=== PATIENT | female | born 1945 | race Caucasian/White ===

== ENCOUNTER 2017-10-22 10:31 | Emergency (ER) | payer MEDICARE ==
[2017-10-22] MEDS ORDERED: HYDROcodone/Acetaminophen 10/325 mg Tablet ONE (11:08)
[2017-10-22] MEDS ORDERED: Adacel (T-DAP) 0.5 ML VIAL ONE (11:08)
--- NOTE | 2017-10-22 11:25 | RAD ---
LEFT HAND RADIOGRAPHS THREE VIEWS: Date: 10-22-17 Provided Clinical History: Hand pain status post injury. FINDINGS: Prominent first CMC degenerative changes are seen. There is no evidence for fracture or other acute o sseous abnormality. Alignment appears anatomic. Joint spaces appear preserved. If there is persistent clinical concern, conservative management and follow up imaging are advised. IMPRESSION: As above. POS: [facility]
--- NOTE | 2017-10-22 11:26 | RAD ---
RIGHT HAND RADIOGRAPHS THREE VIEWS: Date: 10-22-17 Provided Clinical History: Right hand pain status post fall. FINDINGS: Prominent degenerative changes are seen at the first MCM joint. No evidence for fracture or other acu te osseous abnormality. If there is persistent clinical concern, conservative management and follow u p imaging are advised. IMPRESSION: As above. POS: [facility]
[2017-10-22] MEDS ORDERED: Ondansetron ODT 4 MG TAB ONE (12:26)
[2017-10-22] MEDS ORDERED: Ondansetron ODT 8 MG TAB ONE (12:27)
--- NOTE | 2017-10-22 12:49 | CT ---
CT BRAIN WITHOUT CONTRAST: Date: 10/22/17 HISTORY: Trauma. Injury. COMPARISON: None. FINDINGS: Large right forehead superficial soft tissue contusion and hematoma. No territorial infarct or hemorr brooks. No midline shift or mass effect. Ventricular size and extra-axial CSF spaces are normal. Calvar ium is intact. Paranasal sinuses and mastoids are clear. IMPRESSION: Right forehead superficial soft tissue contusion without acute intracranial abnormality. POS: [facility]
== END 2017-10-22 12:18 | disposition home or self-care (01) ==
LOC: ERS 10:31
DX: S09.90XA Unspecified injury of head, initial encounter (principal); S00.83XA Contusion of other part of head, initial encounter; S60.512A Abrasion of left hand, initial encounter; S60.511A Abrasion of right hand, initial encounter; S80.212A Abrasion, left knee, initial encounter; S80.211A Abrasion, right knee, initial encounter; S70.211A Abrasion, right hip, initial encounter; E78.5 Hyperlipidemia, unspecified; Z79.82 Long term (current) use of aspirin; Z79.899 Other long term (current) drug therapy; Z23 Encounter for immunization; W18.30XA Fall on same level, unspecified, initial encounter
CPT/HCPCS: 70450; 90471; 90715; Q0162

== ENCOUNTER 2017-12-22 11:04 | Outpatient (CLI) | payer MEDICARE ==
--- NOTE | 2017-12-22 11:36 | RAD ---
PA AND LATERAL CHEST: History: Cough. FINDINGS: The heart size is normal. The lungs are expanded without focal areas of consolidation, pneumothorax o r pleural effusions. IMPRESSION: No radiographic evidence of acute cardiopulmonary process. POS: [facility]
== END 2017-12-22 11:05 | disposition home or self-care (01) ==
LOC: BICRAD 11:04
PROVIDERS: ATTEND Internal Medicine
DX: R05 Cough (principal)
CPT/HCPCS: 71046

== ENCOUNTER 2018-02-04 12:38 | Outpatient (CLI) | payer MEDICARE ==
--- NOTE | 2018-02-04 15:05 | BD ---
DEXA DENSITOMETRY: INDICATIONS: A 72-year-old female for postmenopausal osteoporosis screening. FINDINGS: LUMBAR SPINE BMD (g/cm2) T-SCORE L1 1.102 1.0 L2 1.122 0.9 L3 1.093 0.1 L4 1.101 0.4 TOTAL 1.104 0.5 FEMORAL NECK DENSITY 0.806 -0.4 TOTAL 1.055 0.9 IMPRESSION: The bone mineral density of the lumbar spine and the femoral neck are both within the normal range. POS: [facility]
== END 2018-02-04 12:39 | disposition home or self-care (01) ==
LOC: BICMAMMO 12:38
PROVIDERS: ATTEND Internal Medicine
DX: Z12.31 Encounter for screening mammogram for malignant neoplasm of breast (principal); Z13.820 Encounter for screening for osteoporosis; Z80.3 Family history of malignant neoplasm of breast
CPT/HCPCS: 77063; 77067; 77080

== ENCOUNTER 2019-07-19 13:19 | Inpatient (IN) | payer MEDICARE ==
[2019-07-19] MEDS ORDERED: Diltiazem 125 MG/25 ML ONE (13:40)
[2019-07-19] MEDS ORDERED: Digoxin 0.5 MG/2 ML AMP ONE (13:40)
[2019-07-19] MEDS ORDERED: Magnesium 2 GM/50 ML BAG (IN WATER) ONE (13:40)
[2019-07-19 13:59] LABS: #Basophils 0.1 thou/uL (0.0-0.2); #Lymphocytes 1.4 thou/uL (1.20-3.40); #Monocytes 0.5 thou/uL (0.11-0.59); #Neutrophils 2.8 thou/uL (1.40-6.50); %Basophils 2.2 % (0.0-1.0); %Eosinophils 0.5 % (0.0-10.0); %Lymphocytes 28.9 % (21.0-51.0); %Neutrophils 57.4 % (42.0-75.0); Hemoglobin 12.6 g/dL (12.0-16.0); Mean Corpuscular HGB CONC 33.3 g/dL (32.0-36.0); Mean Corpuscular Hemoglobin 31.6 pg (27.0-31.0); Mean Platelet Volume 7.8 fL (7.4-10.4); Platelet Count 219 thou/uL (130-400); RBC Distribution Width 11.7 % (11.5-14.5); Red Blood Cell (RBC) Count 3.99 mill/uL (4.20-5.40)
[2019-07-19] MEDS ORDERED: Diltiazem HCl 125 MG, Admixture Fee 1 EACH in Sodium Chloride 0.9% 100 ML IVPB SCH (14:00)
[2019-07-19 14:02] LABS: PTT 25.2 SEC (22.9-36.1); Prothrombin Time 12.7 SEC (12.0-14.7)
[2019-07-19 14:04] LABS: D-Dimer Test 0.28 *mcg/mL (0.27-0.43)
--- NOTE | 2019-07-19 14:04 | RAD ---
RADIOGRAPH CHEST 1 VIEW: DATE: 07/19/2019 HISTORY: 73-year-old female with chest pain, tachycardia, atrial fibrillation FINDINGS: There are no airspace densities, pulmonary edema, pneumothorax, or cardiomegaly. The lateral costophr enic angles are sharp. IMPRESSION: No acute cardiopulmonary findings.
[2019-07-19 14:33] LABS: ALT (SGPT) 19 U/L (8-55); AST (SGOT) 23 U/L (5-34); Alkaline Phosphatase 66 U/L (40-110); Anion Gap 18 mmol/L (10-20); BUN (Urea Nitrogen) 16 mg/dL (9.8-20.1); Bilirubin, Total 0.5 mg/dL (0.2-1.2); CK (CPK) 119 U/L (29-168); Calc. Creatinine Clearance 0 mL/min (70-130); Carbon Dioxide 18 mmol/L (23-31); Chloride 106 mmol/L (98-107); Estimated GFR-MDRD 73; Globulin 2.4 g/dL (2.4-3.5); Glucose 109 mg/dL (83-110); Lipase 36 U/L (8-78); Potassium 3.6 mmol/L (3.5-5.1); Protein, Total 6.4 g/dL (6.0-8.3); Sodium 138 mmol/L (136-145)
[2019-07-19] MEDS ORDERED: Cyanocobalamin 1000 MCG/ML VIAL IM SCH (14:45)
[2019-07-19] MEDS ORDERED: Enoxaparin Sodium 80 MG/0.8 ML SYRINGE ONE (14:59)
[2019-07-19] MEDS ORDERED: Senokot S 8.6-50 MG TAB PO PRN (15:42)
[2019-07-19] MEDS ORDERED: Guaifenesin DM 100-10/5 ML UDCUP PO PRN (15:42)
[2019-07-19] MEDS ORDERED: Acetaminophen 325 MG TAB PO PRN (15:42)
[2019-07-19] MEDS ORDERED: Calcium Carbonate 500 MG ChewTAB PO PRN (15:42)
[2019-07-19] MEDS ORDERED: Ondansetron PF 4 MG/2 ML Vial IVP PRN (15:42)
[2019-07-19] MEDS ORDERED: Bisacodyl 10 MG SUPP PR PRN (15:42)
[2019-07-19] MEDS ORDERED: Diltiazem 125 MG in Sodium Chloride 0.9% 100 ML IVPB SCH (15:45)
--- NOTE | 2019-07-19 16:24 | HP ---
REASON FOR ADMISSION: New onset atrial fibrillation with RVR. HISTORY OF PRESENTING ILLNESS: The patient gives history of playing golf with her friends this morning. She was near her 9th hole when she started to develop palpitations and shortness of breath. This kind of subsided a little bit and she managed to go to her friend's house in her car. While sitting at the patio, the patient developed dizziness again and palpitations associated with it. This again subsided a little and Ms. Jolly ate her lunch. Soon after, the patient got worse with her palpitation and felt like almost passing out with diaphoresis. EMS was summoned and the patient was brought here. She was given multiple doses of Cardizem IV push and digoxin one dose 0.5 mg, along with the patient being on 10 mg an hour of Cardizem drip at present. Her rate is still 110 per minute. No current chest pain or shortness of breath. No history of bleeding per rectum. No prior history of atrial fibrillation. No fever or thyroid problems. No cough or expectoration. No history of exposure to coronavirus. PAST MEDICAL AND SURGICAL HISTORY: Dyslipidemia, GERD, mild coronary artery disease based on prior cardiac cath done by Dr. Mejia 4 years back, hysterectomy, appendectomy, hernia repair, bladder suspension surgery. CURRENT MEDICATIONS: She takes; 1. Atorvastatin 20 mg p.o. at bedtime. 2. Premarin 0.3 mg p.o. at bedtime. 3. Aspirin 81 mg p.o. daily. 4. Protonix 40 mg p.o. daily. 5. Takes a fiber pill daily. 6. Turmeric tablet daily. ALLERGIES: TIOCONAZOLE AND ADHESIVE. PERSONAL HISTORY: Drinks 2 shots of scotch every day. Does not abuse drugs or smoke. She quit smoking more than 40 years back. She lives with her , is very active in life. FAMILY HISTORY: Mother at the age of 69, she had history of emphysema and was a smoker, she also had coronary artery disease. Father at the age of 88, he had history of stroke in his 70s. CODE STATUS: Full. Power of claims attorney is her . REVIEW OF SYSTEMS: CONSTITUTIONAL: Negative for weight loss or gain, ability to conduct usual activities. SKIN: Negative for rash, itching. EYES: Negative for double vision, pain. ENT/MOUTH: Negative for nose bleeding, neck stiffness, pain, tenderness. CARDIOVASCULAR: Negative for palpitations, dyspnea on exertion, orthopnea. RESPIRATORY: Negative for shortness of breath, wheezing, cough, hemoptysis, fever or night sweats. GASTROINTESTINAL: Negative for poor appetite, abdominal pain, heartburn, nausea, vomiting, constipation, or diarrhea. GENITOURINARY: Negative for urgency, frequency, dysuria, nocturia. MUSCULOSKELETAL: Negative for pain, swelling. NEUROLOGIC/PSYCHIATRIC: Negative for anxiety, depression. ALLERGY/IMMUNOLOGIC: Negative for skin rash, bleeding tendency. PHYSICAL EXAMINATION: GENERAL: The patient is a 73-year-old female, who is currently not in any acute distress. VITAL SIGNS: Blood pressure 136/66, pulse 120 per minute, respiratory rate 18 per minute, temperature 98.1 degrees Fahrenheit, saturating 98% on room air. NECK: Supple. No elevated JVD. HEENT: Eyes; extraocular muscles are intact. Pupils reacting to light. Oral cavity, mucous membranes are moist. No exudates or congestion. CARDIOVASCULAR: S1 and S2 heard, irregular rhythm. RESPIRATORY: Air entry 1+ bilateral. No rales or rhonchi. ABDOMEN: Soft. Bowel sounds heard. No tenderness, rigidity, or guarding. EXTREMITIES: No peripheral edema or calf tenderness. VASCULAR: Peripheral pulses 1+ bilateral. No ischemic ulcerations or gangrene. CENTRAL NERVOUS SYSTEM: No gross focal deficits noted. The patient is alert, awake, oriented well. PSYCHIATRIC: The patient's mood is euthymic. No hallucinations or delusions. IMAGING STUDIES: EKG done shows atrial fibrillation with ventricular rate of around 140s. Chest x-ray done shows no acute cardiopulmonary abnormalities. LABORATORY DATA: Troponin x1 negative. BNP is 81. BUN 16, creatinine 0.7, serum bicarb 18. Electrolytes are stable. LFTs are within normal limits. Albumin is 4, lipase 36. PT, INR, PTT within normal limits. White count of 5, hemoglobin and hematocrit 12 and 37, platelet count 219, MCV is 95 with 57% neutrophils. CLINICAL IMPRESSION AND PLAN: The patient will be admitted to [facility] for atrial fibrillation with rapid ventricular response. She has had escalating doses of Cardizem IV push and drip as well in addition to getting a dose of digoxin IV push. She will also be on Lovenox 70 mg subcu q.12 hourly, she has gotten a dose today. We will continue her on small dose of aspirin, Lipitor, Cardizem drip at 10 mg an hour. Normal saline at 60 mL/hour for pressure support. We will continue her home dose of Premarin and Nexium as before. Echo with 2D Doppler for LV function and to rule out thrombus. We will consult Dr. Mackey, who is on-call for Dr. Mejia. We will check her lipid panel and thyroid labs as well for the morning. Job ID: [id number]
[2019-07-19 17:06] LABS: Troponin I 0.081 ng/mL (< 0.028)
[2019-07-19 17:51] VITALS: BMI 26.6
[2019-07-19] MEDS: Metoprolol Tartrate 25 MG TAB PO SCH (18:00)
[2019-07-19] MEDS: Sodium Chloride 0.9% 1,000 ML IV SCH (18:01)
[2019-07-19 19:57] LABS: Troponin I 0.122 ng/mL (< 0.028)
[2019-07-19] MEDS ORDERED: diphenhydrAMINE 25 MG CAP PO SCH (20:00)
[2019-07-19] MEDS: Estrogens, Conjugated 0.3 MG TAB PO SCH (20:24)
[2019-07-19] MEDS: Atorvastatin Calcium 20 MG TAB PO SCH (20:25)
[2019-07-19] MEDS ORDERED: Enoxaparin Sodium 60 MG/0.6 ML SYRINGE SC SCH (21:00)
[2019-07-19] MEDS: Enoxaparin Sodium 80 MG/0.8 ML SYRINGE SC SCH (21:20)
[2019-07-20] MEDS: Zolpidem Tartrate 5 MG TAB PO PRN ×2 (00:29→21:25)
[2019-07-20 04:11] LABS: Anion Gap 12 mmol/L (10-20); BUN (Urea Nitrogen) 9 mg/dL (9.8-20.1); Calc. Creatinine Clearance 90 mL/min (70-130); Calcium 8.2 mg/dL (7.8-10.44); Carbon Dioxide 22 mmol/L (23-31); Cardiac Risk 2.4 (Less than 4.5); Chloride 110 mmol/L (98-107); Cholesterol 187 mg/dl (< 200 Desired); Estimated GFR-MDRD 87; Glucose 88 mg/dL (83-110); HDL Cholesterol 78 mg/dL (>60 Neg Risk); LDL Cholesterol, Calculated 95 mg/dL; Potassium 3.6 mmol/L (3.5-5.1); Sodium 140 mmol/L (136-145); Triglycerides 69 mg/dL (Less than 150)
[2019-07-20 04:29] LABS: Free T4 (Free Thyroxine) 0.93 ng/dL (0.70-1.48); Thyroid Stimulating Hormone 4.1944 uIU/mL (0.35-4.94)
[2019-07-20 05:11] LABS: Band 2 % (5-11); Eosinophils 2 % (0-10); Hemoglobin 11.9 g/dL (12.0-16.0); Lymphocytes 52 % (21-51); MDiff Complete? YES; Mean Corpuscular HGB CONC 31.3 g/dL (32.0-36.0); Mean Corpuscular Hemoglobin 30.2 pg (27.0-31.0); Mean Corpuscular Volume 96.6 fL (78.0-98.0); Mean Platelet Volume 7.7 fL (7.4-10.4); Monocytes 8 % (0-10); Neutrophil 36 % (42-75); Platelet Count 214 thou/uL (130-400); RBC Distribution Width 11.8 % (11.5-14.5); Red Blood Cell (RBC) Count 3.95 mill/uL (4.20-5.40); White Blood Cell (WBC) Count 4.4 thou/uL (4.8-10.8)
[2019-07-20] MEDS: Sodium Chloride 0.9% 1,000 ML IV SCH (06:11)
[2019-07-20] MEDS ORDERED: Aspirin 81 mg Enteric Coated Tablet PO SCH (09:00)
[2019-07-20] MEDS: Metoprolol Tartrate 25 MG TAB PO SCH ×2 (09:29→21:24)
[2019-07-20] MEDS: Cyanocobalamin (Vitamin B-12) 1,000 MCG TAB PO SCH (09:29)
[2019-07-20] MEDS: Enoxaparin Sodium 80 MG/0.8 ML SYRINGE SC SCH ×2 (09:30→21:29)
[2019-07-20] MEDS ORDERED: Dronedarone HCl 400 MG TAB PO SCH (09:45)
--- NOTE | 2019-07-20 10:25 | CON ---
DATE OF CONSULTATION: 07/20/2019 REASON FOR CONSULTATION: Atrial fibrillation with a rapid rate. HISTORY OF PRESENT ILLNESS: Ms. Jolly is a very pleasant 73-year-old woman. The patient was outside playing golf when she felt her heart racing. This happened suddenly. She went to her friend's house in her car, but then felt lightheaded and dizzy and felt like she may even pass out. EMS was called and she was found to be in atrial fibrillation with a rapid rate. She was given multiple doses of Cardizem and one dose of intravenous digoxin. She has been brought here for observation and admission for therapy. No previous history of atrial fibrillation. PAST HISTORY: Cardiac catheterization with minimal coronary artery disease on previous catheterization, will be outlined below. MEDICATIONS: Prior to admission, 1. Atorvastatin 20 mg a day. 2. Aspirin 81 mg a day. 3. Protonix. ALLERGIES: TO ADHESIVE AND TIOCONAZOLE. PERSONAL HISTORY: Drinks 2 shots of scotch every day. Not abusing drugs. FAMILY HISTORY: Mother at age 69, she had emphysema and coronary artery disease. Father at age 88. REVIEW OF SYSTEMS: CONSTITUTIONAL: No significant weight gain or loss. VISION: No changes. HEARING: No changes. PULMONARY: No cough or wheezing. GASTROINTESTINAL: No nausea, vomiting or diarrhea. SKIN: No rashes. NEUROLOGIC: No unilateral weakness or numbness. PSYCHIATRIC: No unusual depression or anxiety. PHYSICAL EXAMINATION: GENERAL: This is a pleasant elderly woman. She is 73 years of age. She is resting comfortably with no complaints. VITAL SIGNS: Blood pressure 117/80, pulse is variable anywhere between 80 to 110, and occasionally, the heart rate slows down slower. NECK: Neck veins are normal. Carotid normal upstrokes. No bruits. LUNGS: Clear. CARDIAC: Normal S1 and normal S2, but it is irregular. No murmur, rub or gallop. ABDOMEN: Soft and nontender. EXTREMITIES: Warm and dry. No clubbing or cyanosis. No edema. PERTINENT LABORATORY DATA: Potassium 3.6. Troponin peak 0.122. LDL cholesterol is 95. EKG did reveal atrial fibrillation with controlled ventricular response. Reviewing the records, she did undergo cardiac catheterization in 2014, nearly 5 years ago from now, in July, just found to have minimal atherosclerotic disease. Right coronary 20% to 25% plaque. LAD, minimal luminal irregularity. ASSESSMENT: 1. Atrial fibrillation with a rapid rate. 2. Minimal atherosclerotic heart disease. 3. Hypercholesterolemia, on medicines. The patient came in quickly after having atrial fibrillation and anticoagulation was started. PLAN: 1. Add dronedarone. 2. Reduce Cardizem. 3. Stop aspirin. 4. Continue statin. 5. We will observe the patient. If she maintains atrial fibrillation tomorrow, we will recommend cardioversion. Since she has been anticoagulated, transesophageal echo would not be indicated. Job ID: [id number]
[2019-07-20] MEDS ORDERED: Potassium Chloride 20 MEQ TAB PO SCH (12:00)
--- NOTE | 2019-07-20 13:17 | PDOC.HOSPP ---
- Subjective Encounter Date: 07/20/19 Encounter Time: 10:45 Subjective: no palp or chest pain or sob feels better - Objective Vital Signs & Weight: Vital Signs (12 hours) Temp Pulse Resp BP Pulse Ox 07/20/19 11:45 98.5 F 70 16 134/78 100 07/20/19 08:00 100 07/20/19 07:41 96.7 F L 07/20/19 03:42 98.3 F Weight Weight 165 lb 4 oz Most Recent Monitor Data Heart Rate from ECG 87 NIBP 106/81 NIBP BP-Mean 89 Respiration from ECG 14 SpO2 100 I&O: 07/19/19 07/20/19 07/21/19 06:59 06:59 06:59 Intake Total 1120 Output Total 1050 Balance 70 Result Diagrams: 07/20/19 03:27 07/20/19 03:27 Hospitalist ROS - Medication Medications: Active Medications Generic Name Dose Route Start Last Admin Trade Name Freq PRN Reason Stop Dose Admin Atorvastatin Calcium 20 mg 07/19/19 21:00 07/19/19 20:25 Lipitor PO 20 mg HS JERI Administration Cyanocobalamin 5,000 mcg 07/20/19 09:00 07/20/19 09:29 Vitamin B-12 PO 5,000 mcg DAILY JERI Administration Enoxaparin Sodium 70 mg 07/19/19 21:00 07/20/19 09:30 Lovenox SC 70 mg 0900,2100 JERI Administration Estrogens Conjugated 0.3 mg 07/19/19 21:00 07/19/19 20:24 Premarin PO 0.3 mg HS JERI Administration Diltiazem HCl 125 mg/ Sodium 125 mls @ 10 mls/hr 07/19/19 15:45 07/19/19 22: 06 Chloride IVPB 125 mls INF JERI Administration Protocol 10 MG/HR Sodium Chloride 1,000 mls @ 60 mls/hr 07/19/19 15:45 07/20/19 06:11 Normal Saline 0.9% IV 1,000 mls .[id number] JERI Administration Metoprolol Tartrate 25 mg 07/19/19 21:00 07/20/19 09:29 Lopressor PO 25 mg BID JERI Administration Pantoprazole Sodium 40 mg 07/20/19 09:00 07/20/19 09:29 Protonix PO 40 mg DAILY JERI Administration Zolpidem Tartrate 5 mg 07/19/19 15:42 07/20/19 00:29 Ambien PO 5 mg HSPRN PRN Administration Insomnia - Exam General Appearance: awake alert Eye: PERRL, anicteric sclera ENT: no oropharyngeal lesions, moist mucosa Neck: supple, no JVD Heart: no murmur, irregular Respiratory: no wheezes, no rales Gastrointestinal: soft, non-tender, non-distended, normal bowel sounds Extremities: no cyanosis, no edema Neurological: cranial nerve grossly intact, no focal deficits Psychiatric: normal affect, A&O x 3 Hosp A/P (1) Atrial fibrillation with RVR Code(s): I48.91 - UNSPECIFIED ATRIAL FIBRILLATION Status: Acute (2) HTN (hypertension) Code(s): I10 - ESSENTIAL (PRIMARY) HYPERTENSION Status: Suspected Qualifiers: Hypertension type: essential hypertension Qualified Code(s): I10 - Essential (primary) hypertension (3) CAD (coronary artery disease) Code(s): I25.10 - ATHSCL HEART DISEASE OF [place] CORONARY ARTERY W/O ANG PCTRS Status: Acute Qualifiers: Coronary Disease-Associated Artery/Lesion type: [place] artery [place] vs. transplanted heart: [place] heart Associated angina: without angina Qualified Code(s): I25.10 - Atherosclerotic heart disease of [place] coronary artery without angina pectoris (4) Dyslipidemia Code(s): E78.5 - HYPERLIPIDEMIA, UNSPECIFIED Status: Chronic - Plan is on lovenox full dose, cardizem drip, lopressor and lipitor hemostable for possible cardioversion in am will need cath in 4-6 weeks, prior mild cad in 2013 -might have progressed. echo
--- NOTE | 2019-07-20 14:24 | EKG ---
Test Reason : AFIB Blood Pressure : / mmHG Vent. Rate : 143 BPM Atrial Rate : 156 BPM P-R Int : 000 ms QRS Dur : 080 ms QT Int : 268 ms P-R-T Axes : 000 025 069 degrees QTc Int : 413 ms Atrial fibrillation with rapid ventricular response Abnormal ECG Confirmed by ALEJANDRO HONG MD ([id number]), social media editor AISLINN LIZARRAGA ([id number]) on 07/20/2019 2:23:40 PM Referred By: Confirmed By:ALEJANDRO HONG MD
[2019-07-20] MEDS: Dronedarone HCl 400 MG TAB PO SCH (16:53)
[2019-07-20] MEDS: Atorvastatin Calcium 20 MG TAB PO SCH (21:24)
[2019-07-20] MEDS: Estrogens, Conjugated 0.3 MG TAB PO SCH (21:25)
[2019-07-21] MEDS ORDERED: Potassium Chloride 20 MEQ TAB PO SCH (08:00)
[2019-07-21 08:14] VITALS: BP 135/65; TEMP 97.8
[2019-07-21] MEDS: Cyanocobalamin (Vitamin B-12) 1,000 MCG TAB PO SCH (08:15)
[2019-07-21] MEDS: Dronedarone HCl 400 MG TAB PO SCH (08:15)
[2019-07-21] MEDS: Metoprolol Tartrate 25 MG TAB PO SCH (08:15)
--- NOTE | 2019-07-21 08:29 | PRG ---
DATE OF SERVICE: 07/21/2019 SUBJECTIVE: Ms. Jolly is feeling well today. She converted to sinus rhythm last night. She feels well. Tolerating medicines well. OBJECTIVE: VITAL SIGNS: Blood pressure 135/65, pulse 63, regular. LUNGS: Clear. CARDIAC: Normal S1, normal S2. ABDOMEN: Soft, nontender. ASSESSMENT: 1. Paroxysmal atrial fibrillation, highly symptomatic. 2. Converted to sinus rhythm after Multaq. PLAN: 1. She is on Eliquis 5 mg twice a day orally. 2. Multaq 400 mg twice a day. 3. Metoprolol tartrate 25 mg twice a day. Later, we could convert that to succinate 50 mg a day. 4. Protonix. 5. She will see us in the office in 2 weeks with EKG. Job ID: [id number]
[2019-07-21] MEDS ORDERED: Apixaban 5 MG TAB PO SCH (09:00)
--- NOTE | 2019-07-21 17:14 | DIS ---
DATE OF ADMISSION: 07/19/2019 DATE OF DISCHARGE: 07/21/2019 DISCHARGE DISPOSITION: Home. PRIMARY DISCHARGE DIAGNOSIS: New onset atrial fibrillation with rapid ventricular response in sinus rhythm. SECONDARY DISCHARGE DIAGNOSES: Hypertension, [id number] coronary artery disease, dyslipidemia. PROCEDURES DONE DURING HOSPITALIZATION: Echo with 2D Doppler done showed ejection fraction of 60% to 65%. Left atrial size was normal. H and H of 12 and 38, platelet count 214, MCV is 96. Total cholesterol 187, triglyceride 69, LDL 95, HDL 78, free T4 of 0.9, free T3 of 3.4, TSH 4.19. BNP 81. BUN 9, creatinine 0.6. DISCHARGE MEDICATIONS: 1. Eliquis 5 mg p.o. twice daily. 2. Multaq 400 mg p.o. twice daily. 3. Metoprolol 25 mg twice daily. 4. Protonix 40 mg daily. 5. Premarin 0.3 mg p.o. at bedtime. 6. Atorvastatin 20 mg p.o. at bedtime. ALLERGIES: TIOCONAZOLE. DISCHARGE PLAN: The patient to follow up with her primary care physician, Dr. Simmons in 1 week. She needs to follow up with Dr. Mejia in 2 to 3 weeks. BRIEF COURSE DURING HOSPITALIZATION: The patient initially came in with complaints of palpitation and shortness of breath. She was found to be in new onset atrial fibrillation with RVR. The patient was given multiple AV edenilson blockers in the ER and was placed on Cardizem drip and admitted to [facility] initially. She was later downgraded to telemetry. The patient was also placed on low-dose Lopressor, and Multaq was added after consultation with Dr. Mejia. At the time of discharge, the patient is in sinus rhythm. She is to continue Multaq, low-dose Lopressor, and Eliquis. She will have a close followup with Dr. Mejia. She will likely need outpatient stress test. Her echo did not reveal any obvious vegetation. Please note, I have seen and examined the patient on the day of discharge. Job ID: [id number]
== END 2019-07-21 09:35 | disposition home or self-care (01) | DRG 310 ==
LOC: ERS 13:19 → IMCU/EMU 15:10 → 2NO 07-20 12:02
PROVIDERS: ADMIT Internal Medicine; ATTEND Internal Medicine
DX: I48.0 Paroxysmal atrial fibrillation (principal); E78.5 Hyperlipidemia, unspecified; E78.00 Pure hypercholesterolemia, unspecified; K21.9 Gastro-esophageal reflux disease without esophagitis; I25.10 Atherosclerotic heart disease of native coronary artery without angina pectoris; Z90.49 Acquired absence of other specified parts of digestive tract; Z90.710 Acquired absence of both cervix and uterus; Z88.8 Allergy status to other drugs, medicaments and biological substances; Z79.82 Long term (current) use of aspirin; Z79.899 Other long term (current) drug therapy; Z87.891 Personal history of nicotine dependence; Z95.5 Presence of coronary angioplasty implant and graft
CPT/HCPCS: 36415; 71045; 80048; 80053; 80061; 82550; 83690; 83880; 84439; 84443; 84481; 84484; 85025; 85379; 85610; 85730; 93005; 93306; J1160; J1650; J3420; J3475; J3490; Q0163

== ENCOUNTER 2020-04-12 08:26 | Outpatient (CLI) | payer MEDICARE ==
--- NOTE | 2020-04-12 08:52 | MMO ---
Bilateral MAMMO Bilat Screen [facility]. CLINICAL HISTORY: Patient is 74 years old and is seen for screening. The patient has the following family history of breast cancer: daughter, at age 41. The patient has no personal history of cancer. VIEWS: The views performed were: bilateral craniocaudal with tomosynthesis and bilateral mediolateral oblique with tomosynthesis. FILMS COMPARED: The present examination has been compared to prior imaging studies performed at [facility] on 11/10/2013, 12/13/2014, 01/31/2016 and 02/04/2018. This study has been interpreted with the assistance of computer-aided detection. MAMMOGRAM FINDINGS: There are scattered fibroglandular densities. Nodularity is stable. There are no suspicious masses, suspicious calcifications, or new areas of architectural distortion. IMPRESSION: THERE IS NO MAMMOGRAPHIC EVIDENCE OF MALIGNANCY. A ROUTINE FOLLOW-UP MAMMOGRAM IN 1 YEAR IS RECOMMENDED. THE RESULTS OF THIS EXAM WERE SENT TO THE PATIENT. ACR BI-RADS Category 2 - Benign finding MAMMOGRAPHY NOTE: 1. A negative mammogram report should not delay a biopsy if a dominant of clinically suspicious mass is present. 2. Approximately 10% to 15% of breast cancers are not detected by mammography. 3. Adenosis and dense breasts may obscure an underlying neoplasm. Reported by: JESSICA GILLIAM MD Electonically Signed: [id number]
== END 2020-04-12 08:27 | disposition home or self-care (01) ==
LOC: BICMAMMO 08:26
PROVIDERS: ATTEND Internal Medicine
DX: Z12.31 Encounter for screening mammogram for malignant neoplasm of breast (principal); Z80.3 Family history of malignant neoplasm of breast
CPT/HCPCS: 77063; 77067

== ENCOUNTER 2021-05-01 13:39 | Outpatient (CLI) | payer MEDICARE | END 2021-05-01 13:40 | disposition home or self-care (01) | LOC: BICMAMMO 13:39 | PROVIDERS: ATTEND Internal Medicine | DX: Z12.31 Encounter for screening mammogram for malignant neoplasm of breast (principal); Z80.3 Family history of malignant neoplasm of breast | CPT/HCPCS: 77063; 77067 ==

== ENCOUNTER 2023-09-07 16:00 | Inpatient (IN) | payer MEDICARE, OTHER ==
[2023-11-03 16:20] VITALS: BMI 26.6
[2023-11-03 17:58] LABS: Hematocrit 38.8 % (34.9-44.5); Hemoglobin 12.2 g/dL (12.0-15.5); Mean Corpuscular HGB CONC 31.4 g/dL (32.0-36.0); Mean Corpuscular Hemoglobin 29.5 pg (27.0-33.0); Mean Corpuscular Volume 93.7 fL (81.6-98.3); Mean Platelet Volume 10.2 fL (7.4-10.4); Platelet Count 264 10x3/uL (150-450); RBC Distribution Width 13.1 % (11.5-14.5); Red Blood Cell (RBC) Count 4.14 10x6/uL (3.90-5.03); White Blood Cell (WBC) Count 4.6 10x3/uL (3.5-10.5)
[2023-11-03 18:12] LABS: ALT (SGPT) 15 U/L (8-55); AST (SGOT) 23 U/L (5-34); Albumin 3.9 g/dL (3.4-4.8); Alkaline Phosphatase 59 U/L (40-110); Anion Gap 12 mmol/L (10-20); BUN (Urea Nitrogen) 15 mg/dL (9.8-20.1); Bilirubin, Total 0.3 mg/dL (0.2-1.2); Calc. Creatinine Clearance 66 mL/min (70-130); Calcium 9.5 mg/dL (7.8-10.44); Carbon Dioxide 25 mmol/L (23-31); Chloride 107 mmol/L (98-107); Estimated GFR 72; Globulin 3.1 g/dL (2.4-3.5); Glucose 91 mg/dL (83-110); Potassium 4.6 mmol/L (3.5-5.1); Sodium 139 mmol/L (136-145)
[2023-11-03 18:39] LABS: Prothrombin Time 10.9 sec (9.5-12.1)
[2023-11-10] MEDS ORDERED: Heparin 10,000 UNITS/ 10 ML VIAL ONE (07:00)
[2023-11-10] MEDS ORDERED: CEFAZOLIN 2 GM VIAL ONE (07:00)
[2023-11-10] MEDS ORDERED: Lidocaine 2% PF 100 mg/5 ml Syringe ONE (07:03)
[2023-11-10] MEDS ORDERED: SUGAMMADEX SODIUM 200 MG/2 ML VIAL ONE (07:03)
[2023-11-10] MEDS ORDERED: fentaNYL PF 100 MCG/2 ML SYRINGE ONE (07:03)
[2023-11-10] MEDS ORDERED: Norepinephrine 4 MG/4 ML VIAL ONE (07:03)
== END 2023-11-10 07:27 | disposition home or self-care (01) | DRG 310 ==
LOC: SURG A 11-10 06:03
PROVIDERS: ADMIT Internal Medicine Cardiovascular Disease; ATTEND Internal Medicine Cardiovascular Disease
PROC: 3E033XZ Introduction of Vasopressor into Peripheral Vein, Percutaneous Approach (ICD-10-PCS; principal; 2023-11-10)
DX: I48.0 Paroxysmal atrial fibrillation (principal); T14.8XXA Other injury of unspecified body region, initial encounter; Z53.8 Procedure and treatment not carried out for other reasons; W55.51XA Bitten by raccoon, initial encounter; Z79.01 Long term (current) use of anticoagulants; Z79.899 Other long term (current) drug therapy; Z91.048 Other nonmedicinal substance allergy status; Z88.8 Allergy status to other drugs, medicaments and biological substances; D50.9 Iron deficiency anemia, unspecified
CPT/HCPCS: 80053; 85027; 85610; 86850; 86900; 86901; J1644; J2001

== ENCOUNTER 2024-04-19 07:59 | Outpatient (CLI) | payer MEDICARE, OTHER ==
[2024-04-19] MEDS ORDERED: Iopamidol 370 76% 100 ML VIAL ONE (09:39)
== END 2024-04-19 08:00 | disposition home or self-care (01) ==
LOC: BICCT 07:59
PROVIDERS: ATTEND Internal Medicine Gastroenterology
DX: K21.9 Gastro-esophageal reflux disease without esophagitis (principal); R11.0 Nausea; R10.13 Epigastric pain
CPT/HCPCS: 36415; 74177; 82565